=== PATIENT | male | born 1950 | race Caucasian/White ===

== ENCOUNTER 2020-03-05 21:17 | Emergency (ER) | payer OTHER ==
[~2020-03-05] VITALS: Ht 177.8 cm; Wt 78.5 kg
[~2020-03-05 21:17] MED LIST: ACET500C PO; AMIO200T33 PO; APIX5TAB OR; ASPI-543 PO; ATOR40TA52 PO; Aspirin PO; Atorvastatin Calcium PO; BACL10TA PO; CHOL100055 PO; CLON-707 PO; CLOP75TA28 PO; DOC100C PO; FURO20TA3 PO; HYDR1CAP27 PO; HYDR25TA4 PO; LISI2.5T47 PO; MET25T PO; POTA-220 PO
[2020-03-05 21:55] VITALS: BP 105/56
== END 2020-03-06 02:13 | disposition home or self-care (01) ==
LOC: ER 21:17
DX: M62.838 Other muscle spasm (principal); F17.210 Nicotine dependence, cigarettes, uncomplicated; I10 Essential (primary) hypertension; V29.9XXA Motorcycle rider (driver) (passenger) injured in unspecified traffic accident, initial encounter; Y93.89 Activity, other specified; Y92.89 Other specified places as the place of occurrence of the external cause; Y99.8 Other external cause status
CPT/HCPCS: 70450; 71045; 72125